=== PATIENT | female | born 1980 | race American Indian/Alaskan Native ===

== ENCOUNTER 2017-05-10 17:52 | Emergency (ER) | payer MEDICAID ==
[2017-05-10 17:52] VITALS: BMI 42.5
--- NOTE | 2017-05-10 19:13 | C.PDOC ---
History Of Present Illness Laury Zapien is a 36 year old female, with no past medical history, who presents to the emergency department complaining of nausea, vomit and worsening abdominal pain onset for the last 3 days. During the last 24 hours patient not tolerating PO. Patient reports bilious vomiting and 4/10 dull mid epigastric pain. She had a gastric sleeve surgery done in 2014. She denies any fever or chills. No further medical complaints. PMD: Matthew Holly Time Seen by Provider: 05/10/17 19:12 Chief Complaint (Nursing): Abdominal Pain History Per: Patient History/Exam Limitations: no limitations Onset/Duration Of Symptoms: Days (x3) Current Symptoms Are (Timing): Still Present Severity: Mild Pain Scale Rating Of: 5 Location Of Pain/Discomfort: Epigastric (mid) Radiation Of Pain To:: None Quality Of Discomfort: Dull Associated Symptoms: Nausea, Vomiting (bilious). denies: Fever, Chills Alleviating Factors: None Recent travel outside of the [place]: No Past Medical History Reviewed: Historical Data, Nursing Documentation, Vital Signs Vital Signs: Last Vital Signs Temp 98.8 F 05/10/17 20:53 Pulse 62 05/10/17 20:53 Resp 20 05/10/17 20:53 BP 122/81 05/10/17 20:53 Pulse Ox 100 05/10/17 20:53 - Medical History PMH: Sleep Apnea (POS SLEEP STUDY AWAITING C PAP) Denies: Chronic Kidney Disease Surgical History: Endoscopy Other Surgeries: gastric sleeve surgery - [facility] Procedures APPLICATION OF SPLINT (09/07/13) ESOPHAGOGASTRODUODENOSCOPY [EGD] W/CLOSED BIOPSY (12/01/14) INJECT/INFUSE NEC (05/25/14) LAPAROSCOPIC REPAIR OF DIAPHRAGMATIC HRN, ABDOMINAL APPROACH (02/15/15) LAPAROSCOPIC ROBOTIC ASSISTED PROCEDURE (02/15/15) LAPAROSCOPIC VERTICAL (SLEEVE) GASTRECTOMY (02/15/15) OTHER ENDOSCOPY OF SM INTEST (02/15/15) Family History: States: Unknown Family Hx - Social History Hx Tobacco Use: No (former smoker) Hx Alcohol Use: Yes (Occasional) Hx Substance Use: No - Immunization History Hx Tetanus Toxoid Vaccination: No Hx Influenza Vaccination: No Hx Pneumococcal Vaccination: No Review Of Systems Constitutional: Negative for: Fever, Chills Gastrointestinal: Positive for: Nausea, Vomiting (bilious), Abdominal Pain ( dull mid epigastric) Physical Exam - Physical Exam Appears: Non-toxic Skin: Warm, Dry Head: Normacephalic Oral Mucosa: Dry Chest: Symmetrical Cardiovascular: Rhythm Regular Respiratory: No Rales, No Rhonchi, No Wheezing Gastrointestinal/Abdominal: Soft, Tenderness (mid epigastric), No Guarding, No Rebound Neurological/Psych: Oriented x3 ED Course And Treatment - Laboratory Results Result Diagrams: 05/10/17 19:19 05/10/17 19:19 O2 Sat by Pulse Oximetry: 99 (RA) Pulse Ox Interpretation: Normal Progress Note: Comp Metabolic Panel. Lipase. HCG, qualitative urine. Urinalysis Medical Decision Making Medical Decision Making: Upon provider reevaluation patient is feeling better, is medically stable, and requires no further treatment in the ED at this time. Patient will be discharged home with Rx for protonic and zofran . Counseling was provided and all questions were answered regarding diagnosis and need for follow up with dr stover. There is agreement to discharge plan. Return if symptoms persist or worsen. Disposition Counseled Patient/Family Regarding: Studies Performed, Diagnosis, Need For Followup, Rx Given - Disposition Referrals: Matthew Holly MD [Medical Doctor] - Disposition: HOME/ ROUTINE Disposition Time: 19:13 Condition: FAIR Additional Instructions: Please return if symptoms recur Prescriptions: Ondansetron ODT [Zofran ODT] 1 odt PO BID PRN #10 odt PRN Reason: Nausea/Vomiting Pantoprazole Sodium [Protonix] 40 mg PO DAILY #15 ect Instructions: Abdominal Pain (ED), Acute Nausea and Vomiting (ED), Gastritis ( DC) Forms: Vyatta (Hebrew) - Clinical Impression Clinical Impression: Abdominal pain, Gastritis, Nausea & vomiting - Scribe Statement Raul Barajas Provider Attestation: All medical record entries made by the Zeinabibsmitha were at my direction and personally dictated by me. I have reviewed the chart and agree that the record accurately reflects my personal performance of the history, physical exam, medical decision making, and the department course for this patient. I have also personally directed, reviewed, and agree with the discharge instructions and disposition.
[2017-05-10 19:22] LABS: BASO # 0.1 K/uL (0.0-0.2); BASO % 0.9 % (0.0-2.0); EOS % 0.1 % (0.0-4.0); LYMPH # 1.3 K/uL (1.0-4.3); LYMPH % 12.4 % (20.0-40.0); MEAN CORPUSCULAR HEMOGLOBIN 29.9 pg (27.0-31.0); MEAN CORPUSCULAR HGB CONC 33.1 g/dL (33.0-37.0); MEAN PLATELET VOLUME 7.4 fL (7.2-11.7); MONO # 0.3 K/uL (0.0-0.8); MONO % 3.1 % (0.0-10.0); RED CELL DISTRIBUTION WIDTH 12.9 % (11.5-14.5)
[2017-05-10 19:27] LABS: MEAN CELL VOLUME 90.3 fL (81.0-99.0); WHITE BLOOD COUNT 10.9 K/uL (4.8-10.8)
[2017-05-10 19:35] LABS: BILIRUBIN,TOTAL 0.8 mg/dL (0.2-1.3); CALCIUM 8.6 mg/dl (8.6-10.4); GFR AFRICAN-AMERICAN > 60; GLUCOSE,RANDOM 83 mg/dL (65-105); TOTAL PROTEIN 8.8 g/dL (6.3-8.3)
[2017-05-10 19:36] LABS: ALKALINE PHOSPHATASE 66 U/L (38-126); ALT/SGPT 35 U/L (9-52); AST/SGOT 35 U/L (14-36); BLOOD UREA NITROGEN 10 mg/dL (7-17); CARBON DIOXIDE 29 mmol/L (22-30); CHLORIDE 105 mmol/L (98-107); POTASSIUM 4.6 mmol/L (3.6-5.2); SODIUM 144 mmol/L (132-148)
[2017-05-10 19:43] LABS: RBC URINE 1 /hpf (0-3); URINE BILIRUBIN NEGATIVE (NEGATIVE); URINE BLOOD NEGATIVE (NEGATIVE); URINE COLOR Yellow (YELLOW); URINE GLUCOSE (UA) NORMAL (Normal); URINE KETONE 1+ mg/dL (NEGATIVE); URINE LEUKOCYTE ESTERASE NEG Leu/uL (Negative); URINE PROTEIN NEGATIVE (NEGATIVE); URINE UROBILINOGEN NORMAL mg/dL (0.2-1.0); WBC URINE 1 /hpf (0-5)
[2017-05-10] MEDS ORDERED: Lactated Ringer's 1,000 ML IV ONE (19:45)
[2017-05-10 20:54] VITALS: BP 122/81; PULSE 62; RESP 20; TEMP 98.8
--- NOTE | 2017-05-10 21:05 | CT ---
EXAM: CT Abdomen and Pelvis Without Intravenous Contrast EXAM DATE/TIME: Exam ordered 05/10/2017 7:40 PM CLINICAL HISTORY: 36 years old, female; Pain; Abdominal pain; Epigastric; Prior surgery; Surgery date: 6+ months; Surgery type: Gastric sleeve; Additional info: N/v, HX gastric sleeve TECHNIQUE: Axial computed tomography images of the abdomen and pelvis without intravenous contrast. All CT scans at this facility use one or more dose reduction techniques, viz.: automated exposure control; ma/kV adjustment per patient size (including targeted exams where dose is matched to indication; i.e. head); or iterative reconstruction technique. Coronal and sagittal reformatted images were created and reviewed. COMPARISON: No relevant prior studies available. FINDINGS: Lower thorax: No acute findings. ABDOMEN: Liver: Unremarkable. Gallbladder and bile ducts: Unremarkable. No calcified stones. No ductal dilation. Pancreas: Unremarkable. No ductal dilation. Spleen: Unremarkable. No splenomegaly. Adrenals: Unremarkable. No mass. Kidneys and ureters: Unremarkable. No obstructing stones. No hydronephrosis. Stomach and bowel: Surgical clips noted along the stomach A moderate amount of stool is seen in the ascending and transverse colon. Descending colon is decompressed. No obstruction. No mucosal thickening. Appendix: No findings to suggest acute appendicitis. PELVIS: Bladder: Unremarkable. No stones. Reproductive: Unremarkable as visualized. ABDOMEN and PELVIS: Intraperitoneal space: Unremarkable. No free air. No significant fluid collection. Bones/joints: No acute fracture. No dislocation. Soft tissues: Stranding of the fat surrounding the superior mesenteric artery. Vasculature: There is stranding of the fat surrounding the superior mesenteric artery. A No abdominal aortic aneurysm. Lymph nodes: Unremarkable. No enlarged lymph nodes. IMPRESSION: 1. Mild inflammatory changes are noted surrounding the superior mesenteric artery just beyond its origin . This could be a manifestation of pancreatitis or ulcer disease.
[2017-05-10 21:15] VITALS: O2SAT 99
== END 2017-05-10 21:40 | disposition home or self-care (01) ==
LOC: C.ER 17:52
DX: K29.70 Gastritis, unspecified, without bleeding (principal)
CPT/HCPCS: 74176; 80053; 81001; 83690; 84703; 85025; 96374; 96375; 99284; J2405; J7120